=== PATIENT | female | born 1940 | race Caucasian/White ===

== ENCOUNTER 2016-12-13 16:41 | Inpatient (IN) | payer MEDICARE, OTHER ==
[~2016-12-13] VITALS: Ht 157.5 cm; Wt 60.8 kg
[~2016-12-13 16:41] MED LIST: ATOR40TA28 PO; CITA10TA68 PO; CLOP75 PO; FAMO20 PO; FERR1TAB45 PO; INSNOV SQ; LISI-661 PO; VITAD1000 PO
[2016-12-13 17:02] LABS: GLUCOSE,POINT OF CARE 318 MG/DL (70-110)
[2016-12-13] MEDS ORDERED: HYDR-3965 PO (17:55)
[2016-12-13] MEDS ORDERED: METO100XL PO (17:55)
[2016-12-13] MEDS ORDERED: NITR.4 SL (17:55)
[2016-12-13] MEDS ORDERED: SODIUM CHLORIDE 0.9% 1,000 ML IV ONE (18:15)
[2016-12-13 18:40] LABS: BASOPHILS % (AUTO) 0.6 % (0.0-2.0); EOSINOPHILS % (AUTO) 1.3 % (1.0-6.0); HEMOGLOBIN 11.6 g/dL (12.0-16.0); LYMPHOCYTES # (AUTO) 2.3 K/uL (1.0-4.8); LYMPHOCYTES % (AUTO) 25.7 % (22.0-44.0); MEAN CORPUSCULAR HEMOGLOBIN 26.9 pg (26.0-34.0); MEAN CORPUSCULAR HGB CONC 32.2 G/dL (31.0-37.0); MEAN CORPUSCULAR VOLUME 84 fL (80-100); MONOCYTES # (AUTO) 0.9 K/uL (0.1-1.0); MONOCYTES % (AUTO) 9.7 % (2.0-9.0); NEUTROPHILS # (AUTO) 5.6 K/uL (1.8-7.7); NEUTROPHILS % (AUTO) 62.7 % (40.0-70.0); PLATELET COUNT (AUTO) 326 K/uL (150-450); RED CELL DISTRIBUTION WIDTH 13.4 % (11.5-14.5); WHITE BLOOD COUNT (AUTO) 8.9 K/uL (4.5-11.0)
[2016-12-13 18:50] LABS: CALCIUM, TOTAL 9.7 mg/dL (8.8-10.5); CREATININE 1.06 mg/dL (0.60-1.30); POTASSIUM 4.6 mmol/L (3.5-5.1)
[2016-12-13 18:56] LABS: ALBUMIN 3.7 g/dL (3.4-5.0); BILIRUBIN,TOTAL 0.4 mg/dL (0.1-1.0); TOTAL PROTEIN, SERUM 7.4 g/dL (6.4-8.2)
[2016-12-13 22:40] LABS: APPEARANCE,URINE CLOUDY (CLEAR); GLUCOSE, URINE (UA) NEGATIVE (NEGATIVE); KETONES,URINE NEGATIVE (NEGATIVE); LEUKOCYTE ESTERASE ,URINE LARGE (NEGATIVE); OCCULT BLOOD,URINE TRACE (NEGATIVE); PH,URINE 7.5 (5.0-8.0); PROTEIN,URINE SEE CONFIRM (NEGATIVE)
[2016-12-13 22:55] LABS: RBC,URINE 0-2 /HPF (0-2); SULFOSALICYLIC ACID,URINE 1+ (Negative); WBC,URINE >100 /HPF (0-5)
[2016-12-13] MEDS ORDERED: ACETAMINOPHEN 325 MG TABLET PO PRN ×2 (23:00→23:45)
[2016-12-13] MEDS ORDERED: ONDANSETRON HCL 4 MG/2 ML VIAL IVP PRN ×2 (23:00→23:45)
[2016-12-13] MEDS ORDERED: ZOLPIDEM TARTRATE 5 MG TABLET PO PRN (23:00)
[2016-12-13] MEDS ORDERED: CefTRIAXone 1 GM/DEXTROSE 50 ML IV ONE (23:00)
[2016-12-13] MEDS ORDERED: VALPROATE SODIUM 750 MG in DEXTROSE 5%-WATER 100 ML IV ONE (23:45)
[2016-12-13] MEDS ORDERED: CIPROFLOXACIN HCL 250 MG TABLET PO ONE (23:45)
[2016-12-13] MEDS ORDERED: 0.9% SODIUM CHLORIDE 10 ML SYRINGE IVP PRN (23:45)
[2016-12-14] VITALS (7 sets, daily range): BP systolic 103–130; BP diastolic 47–64
[2016-12-14] MEDS ORDERED: CefTRIAXone 1 GM/DEXTROSE 50 ML IV SCH (01:00)
[2016-12-14] MEDS ORDERED: DEXTROSE 50%-WATER 25 GM/50 ML SYRINGE IVP PRN (01:45)
[2016-12-14] MEDS ORDERED: -PHARMACY VACCINE NOTE- MISC ONE ×4 (03:00→14:00)
[2016-12-14] MEDS: OxyCODONE HCL/ACETAMINOPHEN 5-325 MG TABLET PO PRN (04:19)
[2016-12-14] MEDS: INSULIN ASPART 100 UNITS/ML SQ PRN ×4 (04:24→20:10)
[2016-12-14 06:11] LABS: GLUCOSE COMMENT 1 Doctor Notified; GLUCOSE,POINT OF CARE 174 MG/DL (70-110)
[2016-12-14 06:17] LABS: GLUCOSE COMMENT 1 Received Meds; GLUCOSE,POINT OF CARE 162 MG/DL (70-110)
[2016-12-14] MEDS: CLOPIDOGREL BISULFATE 75 MG TABLET PO SCH (08:13)
[2016-12-14] MEDS: FAMOTIDINE 20 MG TABLET PO SCH (08:14)
[2016-12-14] MEDS: CHOLECALCIFEROL (VIT D3) 1,000 UNITS TABLET PO SCH (08:14)
[2016-12-14] MEDS: CIPROFLOXACIN HCL 500 MG TABLET PO SCH ×2 (08:14→20:01)
[2016-12-14] MEDS: HEPARIN SODIUM,PORCINE 5,000 UNITS/ML VIAL SQ SCH ×4 (08:15→23:25)
[2016-12-14] MEDS: PANTOPRAZOLE SODIUM 40 MG DR TABLET PO SCH (08:15)
[2016-12-14] MEDS: METOPROLOL SUCCINATE 50 MG ER TABLET PO SCH ×2 (08:16→20:01)
[2016-12-14] MEDS: LISINOPRIL 10 MG TABLET PO SCH (08:16)
[2016-12-14] MEDS: ATORVASTATIN CALCIUM 40 MG TABLET PO SCH (08:16)
[2016-12-14] MEDS ORDERED: [UNRECOGNIZED DRUG - OTHER] PO SCH (09:00)
[2016-12-14 11:41] LABS: GLUCOSE COMMENT 1 Received Meds; GLUCOSE,POINT OF CARE 163 MG/DL (70-110)
[2016-12-14 17:43] LABS: GLUCOSE COMMENT 1 Received Meds; GLUCOSE,POINT OF CARE 183 MG/DL (70-110)
[2016-12-14] MEDS: CITALOPRAM HYDROBROMIDE 10 MG TABLET PO SCH (20:01)
[2016-12-14 20:37] LABS: GLUCOSE COMMENT 1 Received Meds; GLUCOSE,POINT OF CARE 210 MG/DL (70-110)
[2016-12-15 04:29] VITALS: BP 120/58
[2016-12-15] MEDS: INSULIN ASPART 100 UNITS/ML SQ PRN ×4 (05:37→17:44)
[2016-12-15 06:47] LABS: GLUCOSE COMMENT 1 Received Meds; GLUCOSE,POINT OF CARE 280 MG/DL (70-110)
[2016-12-15 07:30] VITALS: BP 146/71
[2016-12-15] MEDS: HEPARIN SODIUM,PORCINE 5,000 UNITS/ML VIAL SQ SCH ×4 (08:00→23:49)
[2016-12-15] MEDS: PANTOPRAZOLE SODIUM 40 MG DR TABLET PO SCH (08:12)
[2016-12-15] MEDS: METOPROLOL SUCCINATE 50 MG ER TABLET PO SCH ×2 (08:12→20:05)
[2016-12-15] MEDS: CIPROFLOXACIN HCL 500 MG TABLET PO SCH ×2 (08:12→20:05)
[2016-12-15] MEDS: CLOPIDOGREL BISULFATE 75 MG TABLET PO SCH (08:12)
[2016-12-15] MEDS: CHOLECALCIFEROL (VIT D3) 1,000 UNITS TABLET PO SCH (08:13)
[2016-12-15] MEDS: FAMOTIDINE 20 MG TABLET PO SCH (08:13)
[2016-12-15] MEDS: LISINOPRIL 10 MG TABLET PO SCH (08:13)
[2016-12-15] MEDS: ATORVASTATIN CALCIUM 40 MG TABLET PO SCH (08:15)
[2016-12-15 11:58] VITALS: BP 155/68
[2016-12-15 12:21] LABS: GLUCOSE,POINT OF CARE 251 MG/DL (70-110)
[2016-12-15 15:26] VITALS: BP 127/60
[2016-12-15] MEDS: MetFORMIN HCL 500 MG TABLET PO SCH (17:42)
[2016-12-15 18:12] LABS: GLUCOSE,POINT OF CARE 196 MG/DL (70-110)
[2016-12-15 19:38] VITALS: BP 144/79
[2016-12-15] MEDS: OxyCODONE HCL/ACETAMINOPHEN 5-325 MG TABLET PO PRN (20:05)
[2016-12-15] MEDS: CITALOPRAM HYDROBROMIDE 10 MG TABLET PO SCH (20:05)
[2016-12-15 22:02] LABS: GLUCOSE COMMENT 1 Received Meds; GLUCOSE,POINT OF CARE 224 MG/DL (70-110)
[2016-12-15 23:25] VITALS: BP 123/70
[2016-12-16 05:07] VITALS: BP 126/58
[2016-12-16 06:47] LABS: GLUCOSE COMMENT 1 Received Meds; GLUCOSE,POINT OF CARE 264 MG/DL (70-110)
[2016-12-16 07:40] VITALS: BP 124/59
[2016-12-16] MEDS: HEPARIN SODIUM,PORCINE 5,000 UNITS/ML VIAL SQ SCH ×3 (08:00→23:34)
[2016-12-16] MEDS: FAMOTIDINE 20 MG TABLET PO SCH (08:32)
[2016-12-16] MEDS: METOPROLOL SUCCINATE 50 MG ER TABLET PO SCH ×2 (08:32→20:44)
[2016-12-16] MEDS: CLOPIDOGREL BISULFATE 75 MG TABLET PO SCH (08:32)
[2016-12-16] MEDS: CHOLECALCIFEROL (VIT D3) 1,000 UNITS TABLET PO SCH (08:32)
[2016-12-16] MEDS: ATORVASTATIN CALCIUM 40 MG TABLET PO SCH (08:33)
[2016-12-16] MEDS: MetFORMIN HCL 500 MG TABLET PO SCH ×2 (08:33→17:03)
[2016-12-16] MEDS: CIPROFLOXACIN HCL 500 MG TABLET PO SCH (08:33)
[2016-12-16] MEDS: PANTOPRAZOLE SODIUM 40 MG DR TABLET PO SCH (08:33)
[2016-12-16] MEDS: LISINOPRIL 10 MG TABLET PO SCH (08:33)
[2016-12-16 11:16] VITALS: BP 146/66
[2016-12-16] MEDS: INSULIN ASPART 100 UNITS/ML SQ PRN ×3 (11:34→20:50)
[2016-12-16 16:11] LABS: GLUCOSE COMMENT 1 Received Meds; GLUCOSE,POINT OF CARE 326 MG/DL (70-110)
[2016-12-16 17:57] LABS: GLUCOSE,POINT OF CARE 182 MG/DL (70-110)
[2016-12-16 20:13] VITALS: BP 114/53
[2016-12-16] MEDS: CITALOPRAM HYDROBROMIDE 10 MG TABLET PO SCH (20:44)
[2016-12-16] MEDS: OxyCODONE HCL/ACETAMINOPHEN 5-325 MG TABLET PO PRN (20:45)
[2016-12-16 22:42] LABS: GLUCOSE COMMENT 1 Received Meds; GLUCOSE,POINT OF CARE 216 MG/DL (70-110)
[2016-12-17] VITALS (7 sets, daily range): BP systolic 106–141; BP diastolic 50–84
[2016-12-17] MEDS: INSULIN ASPART 100 UNITS/ML SQ PRN ×4 (05:43→20:16)
[2016-12-17] MEDS: OxyCODONE HCL/ACETAMINOPHEN 5-325 MG TABLET PO PRN (05:43)
[2016-12-17 06:12] LABS: GLUCOSE COMMENT 1 Received Meds; GLUCOSE,POINT OF CARE 231 MG/DL (70-110)
[2016-12-17 07:06] LABS: INR 1.1 (0.9-1.1); PROTHROMBIN TIME 11.2 SEC (9.4-11.6)
[2016-12-17] MEDS: LISINOPRIL 10 MG TABLET PO SCH (08:49)
[2016-12-17] MEDS: METOPROLOL SUCCINATE 50 MG ER TABLET PO SCH ×2 (08:49→20:15)
[2016-12-17] MEDS: CHOLECALCIFEROL (VIT D3) 1,000 UNITS TABLET PO SCH (08:50)
[2016-12-17] MEDS: ATORVASTATIN CALCIUM 40 MG TABLET PO SCH (08:50)
[2016-12-17] MEDS: MetFORMIN HCL 500 MG TABLET PO SCH ×2 (08:50→18:10)
[2016-12-17] MEDS: HEPARIN SODIUM,PORCINE 5,000 UNITS/ML VIAL SQ SCH ×2 (08:50→16:00)
[2016-12-17] MEDS: FAMOTIDINE 20 MG TABLET PO SCH (08:50)
[2016-12-17] MEDS: CLOPIDOGREL BISULFATE 75 MG TABLET PO SCH (08:50)
[2016-12-17] MEDS: PANTOPRAZOLE SODIUM 40 MG DR TABLET PO SCH (08:50)
[2016-12-17] MEDS: CefoTEtan DISOD 1 GM/DEXTROSE 50 ML IV SCH ×2 (09:00→20:15)
[2016-12-17 10:22] LABS: INR 1.1 (0.9-1.1); PROTHROMBIN TIME 11.4 SEC (9.4-11.6)
[2016-12-17 11:37] LABS: GLUCOSE COMMENT 1 Received Meds; GLUCOSE,POINT OF CARE 218 MG/DL (70-110)
[2016-12-17 18:02] LABS: GLUCOSE COMMENT 1 Received Meds; GLUCOSE,POINT OF CARE 218 MG/DL (70-110)
[2016-12-17] MEDS ORDERED: SODIUM CHLORIDE 0.9% 250 ML IV ONE (20:14)
[2016-12-17] MEDS: CITALOPRAM HYDROBROMIDE 10 MG TABLET PO SCH (20:15)
[2016-12-17 23:31] LABS: GLUCOSE,POINT OF CARE 236 MG/DL (70-110)
[2016-12-18] MEDS: INSULIN ASPART 100 UNITS/ML SQ PRN ×4 (06:06→20:04)
[2016-12-18 06:27] LABS: GLUCOSE,POINT OF CARE 176 MG/DL (70-110)
[2016-12-18 07:35] VITALS: BP 116/88
[2016-12-18] MEDS: CHOLECALCIFEROL (VIT D3) 1,000 UNITS TABLET PO SCH (08:05)
[2016-12-18] MEDS: MetFORMIN HCL 500 MG TABLET PO SCH ×2 (08:05→17:41)
[2016-12-18] MEDS: METOPROLOL SUCCINATE 50 MG ER TABLET PO SCH ×2 (08:05→19:54)
[2016-12-18] MEDS: ATORVASTATIN CALCIUM 40 MG TABLET PO SCH (08:05)
[2016-12-18] MEDS: FAMOTIDINE 20 MG TABLET PO SCH (08:05)
[2016-12-18] MEDS: HEPARIN SODIUM,PORCINE 5,000 UNITS/ML VIAL SQ SCH ×3 (08:06→16:00)
[2016-12-18] MEDS: CefoTEtan DISOD 1 GM/DEXTROSE 50 ML IV SCH ×2 (08:06→19:53)
[2016-12-18] MEDS: LISINOPRIL 10 MG TABLET PO SCH (08:06)
[2016-12-18] MEDS: CLOPIDOGREL BISULFATE 75 MG TABLET PO SCH (08:06)
[2016-12-18] MEDS: PANTOPRAZOLE SODIUM 40 MG DR TABLET PO SCH (08:06)
[2016-12-18] MEDS: OxyCODONE HCL/ACETAMINOPHEN 5-325 MG TABLET PO PRN (09:28)
[2016-12-18 11:33] LABS: GLUCOSE COMMENT 1 Received Meds; GLUCOSE,POINT OF CARE 182 MG/DL (70-110)
[2016-12-18 12:00] VITALS: BP 119/52
[2016-12-18 16:00] VITALS: BP 126/63
[2016-12-18 17:52] LABS: GLUCOSE COMMENT 1 Received Meds; GLUCOSE,POINT OF CARE 196 MG/DL (70-110)
[2016-12-18 19:24] VITALS: BP 121/60
[2016-12-18] MEDS: CITALOPRAM HYDROBROMIDE 10 MG TABLET PO SCH (19:54)
[2016-12-18 23:31] LABS: GLUCOSE COMMENT 1 Received Meds; GLUCOSE,POINT OF CARE 222 MG/DL (70-110)
== END 2016-12-18 20:20 | DRG 638 ==
LOC: EMS 16:43 → 6N 23:10
PROVIDERS: ADMIT Internal Medicine; ATTEND Internal Medicine
DX: E11.65 Type 2 diabetes mellitus with hyperglycemia (principal); N39.0 Urinary tract infection, site not specified; F32.9 Major depressive disorder, single episode, unspecified; K21.9 Gastro-esophageal reflux disease without esophagitis; I25.10 Atherosclerotic heart disease of native coronary artery without angina pectoris; I48.91 Unspecified atrial fibrillation; I25.2 Old myocardial infarction; E78.00 Pure hypercholesterolemia, unspecified; E86.0 Dehydration; E78.2 Mixed hyperlipidemia; I11.9 Hypertensive heart disease without heart failure; E55.9 Vitamin D deficiency, unspecified; D50.9 Iron deficiency anemia, unspecified; B96.1 Klebsiella pneumoniae [K. pneumoniae] as the cause of diseases classified elsewhere; Z95.5 Presence of coronary angioplasty implant and graft; Z79.899 Other long term (current) drug therapy; Z79.891 Long term (current) use of opiate analgesic; Z79.02 Long term (current) use of antithrombotics/antiplatelets; Z79.4 Long term (current) use of insulin; Z16.24 Resistance to multiple antibiotics; Z91.19 Patient's noncompliance with other medical treatment and regimen
CPT/HCPCS: 51701; 70450; 82948; 82962; 83036; 83605; 87040; 87077; 87086; 93005; 99285; J0696; J1644; J3490; J7030; J7050; J7060